=== PATIENT | female | born 1975 | race Caucasian/White ===

== ENCOUNTER 2017-07-27 08:15 | Emergency (ER) | payer MEDICAID ==
[2017-07-27] MEDS: DIPHENHYDRAMINE 50 MG INJ IM (08:54)
[2017-07-27] MEDS: FAMOTIDINE 20 MG TAB PO (08:54)
[2017-07-27] MEDS: predniSONE 20 MG TAB PO (08:54)
== END 2017-07-27 10:03 | disposition home or self-care (01) ==
LOC: FTE 08:15
DX: R21 Rash and other nonspecific skin eruption (principal)
CPT/HCPCS: 96372; 99284-25